=== PATIENT | female | born 2000 | race American Indian/Alaskan Native ===

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

== ENCOUNTER 2021-01-08 09:07 | Inpatient (IN) | payer MEDICAID ==
[2021-01-08] MEDS ORDERED: Lidocaine 1% 30 ML SDV INJECT PRN (11:46)
[2021-01-08] MEDS ORDERED: Ondansetron 4 MG/2 ML SDV IVPUSH PRN (11:46)
[2021-01-08] MEDS ORDERED: Lactated Ringers 1,000 ML IV ONE (11:46)
[2021-01-08] MEDS ORDERED: Misoprostol 400 MCG (4 X 100 MCG TAB) RECTAL PRN (11:46)
[2021-01-08] MEDS ORDERED: Carboprost Tromethamine 250 MCG/1 ML Amp IM PRN (11:46)
[2021-01-08] MEDS ORDERED: Butorphanol 2 MG/ML SDV IVPUSH PRN ×2 (11:46)
[2021-01-08] MEDS ORDERED: fentaNYL 100 MCG/2 ML SDV IVPUSH PRN (11:46)
[2021-01-08] MEDS ORDERED: Tranexamic Acid 1,000 MG in Sodium Chloride 0.9% 100 ML IV PRN (11:46)
[2021-01-08] MEDS ORDERED: Sodium Chloride 0.9% 10 ML Syringe FLUSH PRN (11:46)
[2021-01-08] MEDS ORDERED: Acetaminophen 325 MG Tab PO PRN (11:46)
[2021-01-08] MEDS ORDERED: Methylergonovine 0.2 MG/1 ML Amp IM PRN (11:46)
[2021-01-08] MEDS ORDERED: Nalbuphine 10 MG/1 ML Vial IV PRN (11:48)
[2021-01-08] MEDS ORDERED: Nalbuphine 10 MG/1 ML Vial IM PRN (11:48)
[2021-01-08] MEDS ORDERED: Oxytocin/Normal Saline 30 UNIT/500 ML BAG IV SCH (12:00)
[2021-01-08] MEDS: Lactated Ringers 1,000 ML IV SCH ×2 (12:56→16:44)
--- NOTE | 2021-01-08 16:19 | HP ---
HISTORY OF PRESENT ILLNESS: Dean is a 20 year old G1, P0, at 39 weeks 0 days gestational age based on LMP, confirmed by ultrasound, presenting for spontaneous rupture of membranes. She reports that around 8:30 this morning, she felt a large gush of clear fluid. She has been having intermittent contractions, she reports that last night they were approximately every hour. She reports that they are stronger now. She does report that she potentially has been leaking fluid for 2 to 3 weeks. When discussing vaginal discharge and urine, she feels certain that it has been amniotic fluid that has been leaking. She denies any recent fevers or chills, abdominal pain. She has not had any vaginal bleeding. movement is positive. Of note, her care started in [place], and she then transferred to [place], and then to [facility] in [place], [place], where she has been living most recently. She is actually in [facility] right now for a , as her sister committed suicide recently. OBSTETRIC HISTORY: G1: Current . GYNECOLOGICAL HISTORY: The patient denies any history of HSV. LABS (COMPLETED ON 06/19/2020): Blood group is A positive, antibody negative. RPR is nonreactive. Rubella IGG is positive, immune. Hepatitis B surface antigen was negative. Hepatitis C antibody was negative. HIV negative. Gonorrhea negative. Chlamydia positive on 06/19/2020, status post treatment with azithromycin on 07/17/2020. The patient reports test of cure was negative, we do not have these records yet. UDS was negative x2. TSH 0.62. Hemoglobin 12.9, hematocrit 37.9. Platelets 355. Glucose tolerance test on 11/30/2020, GTT 116, passed. GBS negative. Hemoglobin 10.5, hematocrit 32.4. Platelets 292. Ultrasound completed on 12/12/2020 showed mild polyhydramnios, maximal vertical pocket of 8.2. Estimated weight 55th percentile. Tdap given on 11/30/2020, influenza given on 11/30/2020. PAST MEDICAL HISTORY: Depression, not on medications, with history of suicide attempt. PAST SURGICAL HISTORY: None. ALLERGIES: No known drug allergies. SOCIAL HISTORY: Denies tobacco. Denies alcohol. Denies drugs. FAMILY HISTORY: Noncontributory. The patient denies family history of any bleeding/hypercoagulability disorder/ genetic condition/malignant hyperthermia. The patient's father is of diabetes and heart disease. Maternal aunt with breast cancer. First-degree cousin with Down syndrome. REVIEW OF SYSTEMS: General: The patient denies any recent fevers or chills, report weight gain has been stable throughout . Psychiatric: The patient reports sadness as she is in town for her sister's . She denies any suicidal or homicidal ideation. Dermatologic: The patient denies any skin rashes. Respiratory: Denies any increased work of breathing, shortness of breath. Cardiovascular: The patient denies any chest pain, palpitations. Gastrointestinal: The patient denies any abdominal pain, nausea, vomiting, diarrhea, constipation. Genitourinary: The patient denies any dysuria, increased frequency. PHYSICAL EXAMINATION: Admission Vitals: See vitals reported in [facility]. General Appearance: Alert, well appearing, in no apparent distress. Lungs: Clear to auscultation. No rales or rhonchi. Symmetric air entry without increased work of breathing. Heart: Regular rate and rhythm. No murmurs. Abdomen: Gravid, nontender to palpation, positive bowel sounds. By [place], baby is vertex. heart tone: Category 1. Baseline 120, moderate variability, positive accelerations, negative decelerations. [place]: Contractions every 3 minutes. Pelvic: Normal external genitalia, vulva, vagina. SVE: 2 cm dilated/50% effacement/-2 station, bag is spontaneously ruptured with clear fluid. Extremities: No redness or tenderness in the calf, no pitting edema. Skin: Normal color and turgor, no rash. ASSESSMENT AND PLAN: Dean is a 20-year-old G1, P0 at 39.0 weeks gestational age, admitted for spontaneous rupture of membrane, prelabor rupture of membranes. 1. Maternal wellbeing: Good. 2. wellbeing: heart tones category 1. 3. The patient is currently marialuisa every 3 minutes. We will start Pitocin for augmentation of labor. 4. Group B Streptococcus status is negative. Plan: No antibiotics in labor. 5. Pain management: The patient is unsure if she wants intrathecal at this time. She is going to see how things go. 6. Prelabor rupture of membranes: Admitting the patient for induction of labor. 7. Chlamydia infection in the first trimester: Status post azithromycin treatment and test of cure negative. 8. Anemia of : Hgb 10.5 on 11/20/20. [facility] /[id number] MTDD
[2021-01-08] MEDS ORDERED: fentaNYL 100 MCG/2 ML SDV ONE (16:32)
[2021-01-08] MEDS ORDERED: Sodium Bicarbonate 4.2% 2.5 MEQ/5 ML SDV ONE (16:33)
[2021-01-08] MEDS ORDERED: EPINEPHrine 1 MG/1 ML Amp ONE (16:33)
--- NOTE | 2021-01-08 16:58 | PCM.SN.2 ---
- Free Text/Narrative Note: Intrathecal. Sitting position, sterile prep and drape. 1% lidocaine w bicarb for skinwheal to L3 L4 interspace x 2. Introducer x 2, POS CSF, neg heme, neg parasthesia. 0.1 ml 1:1000 pf epi, 15 mcg pf sufenta, 35 mcg pf fentanyl. 0.04 ml pf NS and 6 mg of 0.75 % pf marcaine injected after CSF aspiration. Pt to L lateral position. Procedure time 1640 to 1710
[2021-01-08] MEDS ORDERED: Simethicone 80 MG Tab.Chew PO PRN (20:58)
[2021-01-08] MEDS ORDERED: Oxytocin 10 Units/1 ML SDV IM PRN (20:58)
[2021-01-08] MEDS ORDERED: Benzocaine/Menthol 20%-0.5% Spray 56 GM Canister TOP PRN (20:58)
[2021-01-08] MEDS ORDERED: hydrOXYzine HCl 25 MG Tab PO PRN (21:00)
[2021-01-08] MEDS: Ibuprofen 800 MG Tab PO PRN (22:57)
[2021-01-08] MEDS: Docusate Sodium 100 MG Cap PO PRN (22:58)
--- NOTE | 2021-01-09 02:58 | DEL ---
DATE: 01/08/2021 Dean Cuadra G1, now P1, GBS negative, delivery of a viable male weighing (pending), score of 7 and 9 at 1 and 5 minutes respectively. Delivery was vaginal to a sterile field under intrathecal anesthesia. Position was DELMI. There was no nuchal cord. was initially taken to the warmer and then promptly to Mom's chest. Complications of delivery: None. Placenta with 3-vessel cord delivered spontaneously, intact, and completely. Placenta appeared to have several calcifications. Perineum had superficial nonbleeding lacerations which did not require repair. Estimated blood loss approximately 500 mL. 30 units Pitocin was administered IV after placental delivery. Methergine 0.2 mg IM was also given due to persistent uterine bleeding. Uterine massage was performed and bleeding stopped. and mother recovering well in patient's room. ASSESSMENT AND PLAN: This is a G1, now P1 patient at 39 weeks gestational age status post vaginal delivery without complications. 1. Maternal well-being: Doing well. 2. well-being: Doing well, skin to skin. Mom planning on breast feeding. 3. Prelabor rupture of membranes: Status post vaginal delivery without complication. No fevers during labor. We will continue to monitor Mom and baby. 4. Chlamydia infection 1st trimester: Status post azithromycin treatment and test of cure negative. 5. Anemia of : Hemoglobin 10.5 on 11/20/2020. Hemoglobin on admission was 10.1 today. We will check CBC in the morning. The patient is asymptomatic. We will follow up clinically. 6. Hemorrhage: EBL 500mL. Pitocin and methergine given. Bleeding has stopped. Will follow Hgb and monitor for any further bleeding. [facility] /[id number] MTDD
--- NOTE | 2021-01-09 07:40 | PN ---
DATE: 01/08/2021 Labor Progress Note SUBJECTIVE: Labor. Pain is more intense, unable to breathe through contractions. Requesting intrathecal pain relief. No other somatic complaints. OBJECTIVE: Current Vital Signs: Please see vital signs reported in [facility]. General: Alert. No concerning distress. Abdomen: Gravid abdomen. Heart Tones: Category 1. Baseline 125, moderate variability, positive accelerations, negative decelerations. [place]: Contractions every 2 to 3 minutes. Pelvic: 5 to 6 cm dilated, 90% effaced, -1 station. Extremities: Nontender. No concerning edema. ASSESSMENT AND PLAN: Dean is a 20-year-old G1, P0, at 39.0 weeks' gestational age, admitted for prelabor rupture of membranes. 1. Maternal well-being: Good. 2. well-being: heart tone category 1. Correct heart tracing category 1. 3. Labor: Progressing. Pitocin running. 4. Group B Streptococcus status is negative. Plan: No antibiotics in labor. 5. Pain management: Anesthesia has been consulted for intrathecal. The patient has previously received Nubain. 6. Prelabor rupture of membranes: The patient is admitted and labor is currently being augmented. 7. Chlamydia infection in first trimester: Status post azithromycin treatment and test of cure negative. 8. Anemia of : Hemoglobin 10.5. The patient is asymptomatic. Plan: Continue to monitor clinically. [facility] /[id number]
--- NOTE | 2021-01-09 07:40 | PN ---
DATE: 01/08/2021 SUBJECTIVE: Labor. The patient has been very comfortable and sleeping most of the time since placement of intrathecal pain relief. No other somatic complaints. OBJECTIVE: Current Vital Signs: Please see vitals reported in [facility]. General: Alert. No concerning distress. Abdomen: Gravid, nontender. Heart Tracing: Category 1. Baseline 140 beats per minute, moderate variability, positive accelerations, early decelerations. [place]: Contractions every 2 to 3 minutes. Pelvic: Normal external genitalia, vulva, vagina. SVE: 10 cm/100% effacement/0 station. Bag has spontaneously ruptured. Extremities: Nontender. No concerning edema. ASSESSMENT AND PLAN: Dean is a 20-year-old G1, P0, at 39.0 weeks' gestational age, admitted for prelabor rupture of membranes. 1. Maternal well-being: Good. 2. well-being: heart tracing category 1. 3. Labor: Augmentation. Progressing. Pitocin currently at 6. 4. Group B Streptococcus status is negative. Plan: No antibiotics in labor. 5. Pain management: Intrathecal at 1700. Received 1 dose of Nubain prior. 6. Prelabor rupture of membranes: The patient admitted for augmentation of labor. 7. Chlamydia infection in first trimester: Status post azithromycin treatment, and test of cure is negative. 8. Anemia of : Hemoglobin 10.5 on 11/20/2020. Hemoglobin 10.1 on admission lab. The patient is asymptomatic. Plan: Continue to monitor clinically. [facility] /[id number]
[2021-01-09] MEDS: Ibuprofen 800 MG Tab PO PRN ×2 (08:42→18:05)
[2021-01-09] MEDS: Docusate Sodium 100 MG Cap PO PRN (08:42)
[2021-01-09] MEDS ORDERED: Prenatal Multivitamin with Calcium/Folic Acid/Iron Tab PO SCH (09:00)
--- NOTE | 2021-01-09 10:04 | PN ---
DATE: 01/09/2021 SUBJECTIVE: No complaints this morning. Denies chest pain, shortness of breath, nausea, vomiting, fevers, chills. Was out of bed once to ambulate and urinate last night without difficulty. Has not yet been out of bed this morning. Tolerating p.o. Lochia appropriate. Complains of some soreness, but otherwise pain is controlled. OBJECTIVE: Vital Signs: Please see charting in [facility]. General: Alert. No acute distress, appropriate affect. Respiratory: No increased work of breathing, clear to auscultation bilaterally. CV: Normal S1 and S2, no murmur. Abdomen: Soft, appropriately tender, fundus firm, -1 umbilicus. Extremities: Nontender. No concerning edema. LABORATORY DATA: WBC 12.4, hemoglobin 10.2, hematocrit 31.4, and platelets 227. Input 2500 mL, output 500 mL. ASSESSMENT AND PLAN: Dean is a G1, P1, status post spontaneous vaginal delivery without complications. PPD#1. 1. Maternal well-being: Doing well overall. 2. well-being: Doing well, was given formula overnight. Mom is undecided if she is going to try breast feeding again today. 3. Prelabor rupture of membranes: Status post vaginal delivery without complication. No fevers during labor, no fevers thus far in the period. We will continue to monitor mom and baby. 4. Chlamydia infection in the first trimester: Status post azithromycin treatment, and test of cure negative. 5. Anemia of : Hemoglobin 10.5 on 11/20/2020. Hemoglobin on admission was 10.1. Hemoglobin this morning was 10.2. The patient is asymptomatic. We will follow clinically. vitamins. 6. hemorrhage: Estimated blood loss 500 mL. Pitocin and Methergine given immediately . Bleeding resolved without any further intervention. We will continue to monitor mom for any further bleeding. [facility] /[id number] MTDD
[2021-01-09] MEDS ORDERED: Measles, Mumps & Rubella Vaccine 0.5 ML SDV SUBCUT ONE (17:39)
[2021-01-09] MEDS ORDERED: EPINEPHrine 1 MG/1 ML Amp ONE (22:29)
[2021-01-09] MEDS ORDERED: Sodium Bicarbonate 4.2% 2.5 MEQ/5 ML SDV ONE (22:29)
[2021-01-09] MEDS ORDERED: fentaNYL 100 MCG/2 ML SDV ITHECAL ONE (22:29)
[2021-01-09] MEDS ORDERED: Sodium Chloride 0.9% 20 ML SDV ONE (22:29)
--- NOTE | 2021-01-10 08:00 | DISCH ---
REASON FOR ADMISSION: Prelabor rupture of membranes. OBSTETRIC HISTORY: G1: Current . Status post spontaneous vaginal delivery without complication. DELIVERY: Sex: Male. Weight: 3805 g. Discharge Weight: 3815g Score: 7 and 9 at one and five minutes respectively. PROCEDURE: Intrapartum: Intrathecal anesthesia. PROBLEM LIST: 1. Spontaneous vaginal delivery at term (39.0 weeks gestational age). 2. Prelabor rupture of membranes. 3. GBS negative. 4. Rubella equivocal. 5. Chlamydia infection in the first trimester. 6. Anemia of . 7. hemorrhage. FINAL DIAGNOSES: 1. Spontaneous vaginal delivery, at term (39.0 weeks gestational age). 2. Prelabor rupture of membranes. 3. GBS negative. 4. Rubella equivocal. 5. Chlamydia infection in the first trimester. 6. Anemia of . 7. hemorrhage. CONSULTS AND REFERRALS: Anesthesiology ASSESSMENT AND PLAN: Dean is a 20-year-old status post spontaneous vaginal delivery at 39.0 weeks gestational age. 1. Prelabor rupture of membranes: Gush of fluid felt at 0830. Labor was augmented and the patient delivered at 2037. 2. GBS status negative. Plan: No antibiotics in labor. 3. Chlamydia infection in the first trimester: Status post azithromycin treatment, and test of cure is negative. 4. Anemia of : Hemoglobin 10.5 on 11/20/2020. Hemoglobin 10.1 on admission and 10.2 . 5. hemorrhage. Estimated blood loss of 500 mL. Status post 30 units oxytocin IV after delivery of anterior shoulder. Status post 0.2 mg of Methergine IM. Bleeding well controlled. No additional bleeding during hospital course. PRELIMINARY DISCHARGE MEDICATIONS: This list of medications is preliminary and tentative. Please see after visit summary for final and accurate medication list. 1. Tylenol 650 mg every 4 hours p.r.n. pain. 2. Ibuprofen 400 mg every 4 to 6 hours as needed for pain. 3. MiraLax 17 g q. day as needed for constipation. HOSPITAL COURSE: , 20-year-old female, 39 weeks and 0 days gestational age based on LMP, presented with prelabor rupture of membranes. She reported that at 8:30 on 01/08/2021 she felt a large gush of clear fluid. She had been having intermittent contractions on the day before. She reported that the contractions were stronger upon presentation. The patient reported that she was potentially leaking a small amount of fluid for 2 to 3 weeks. She had been afebrile and remained afebrile intrapartum and . Of note, the patient is currently living in [place], [place], and was in [facility] to attend her sister's . The patient's labor was augmented with Pitocin per protocol. She received intrathecal anesthesia for pain. She progressed to complete without complication. She pushed for approximately 45 minutes and had a spontaneous vaginal delivery of a viable male at 2035. Approximately 500 mL of EBL with poor uterine tone. She received 30 units of oxytocin IV and 0.2 mg of Methergine IM. This controlled the bleeding, and there were no other problems with bleeding . Recovery was uncomplicated. The patient was deemed stable for discharged home on 01/09/2021 after 24 hours with baby. DISCHARGE DISPOSITION: Home. FOLLOWUP APPOINTMENTS: Six weeks with [facility] [facility] [facility] in [place], [place]. [facility] /[id number] MTDD
== END 2021-01-09 22:30 | disposition home or self-care (01) | DRG 806 ==
LOC: DL.OBCHECK 09:07 → DL.OB 11:46 → OBSVTOIN 20:36
PROVIDERS: ADMIT Family Medicine; ATTEND Family Medicine
PROC: 10E0XZZ Delivery of Products of Conception, External Approach (ICD-10-PCS; 2021-01-08)
PROC: 3E0R3BZ Introduction of Anesthetic Agent into Spinal Canal, Percutaneous Approach (ICD-10-PCS; 2021-01-08)
PROC: 00HU33Z Insertion of Infusion Device into Spinal Canal, Percutaneous Approach (ICD-10-PCS; 2021-01-08)
PROC: 3E0234Z Introduction of Serum, Toxoid and Vaccine into Muscle, Percutaneous Approach (ICD-10-PCS; principal; 2021-01-09)
DX: O42.92 Full-term premature rupture of membranes, unspecified as to length of time between rupture and onset of labor (principal); O72.1 Other immediate postpartum hemorrhage; Z37.0 Single live birth; Z3A.39 39 weeks gestation of pregnancy; O99.02 Anemia complicating childbirth; D64.9 Anemia, unspecified; Z20.822 Contact with and (suspected) exposure to COVID-19; Z23 Encounter for immunization
CPT/HCPCS: 01967; 36415; 59409; 85027; 90471; 90707; A9270-GY; J0171; J2210; J2300; J2405; J2590; J3010; J7120; U0002

== ENCOUNTER 2023-06-30 08:36 | Emergency (ER) | payer MEDICAID ==
[2023-06-30] MEDS: Acetaminophen 500 MG Tab PO ONE (10:25)
[2023-06-30] MEDS: Ibuprofen 400 MG Tab PO ONE (10:25)
== END 2023-06-30 10:26 | disposition home or self-care (01) ==
LOC: DL.ED 08:36
DX: J02.9 Acute pharyngitis, unspecified (principal)
CPT/HCPCS: 87081; 87430; 99282; A9270

== ENCOUNTER 2024-02-28 08:41 | Emergency (ER) | payer MEDICAID ==
[2024-02-28] MEDS: Sodium Chloride 0.9% 1,000 ML IV ONE (09:30)
[2024-02-28 09:41] LABS: APPEARANCE,URINE CLEAR (CLEAR); BILIRUBIN,URINE NEGATIVE (NEGATIVE); COLOR,URINE YELLOW (YELLOW); GLUCOSE,URINE NEGATIVE (NEGATIVE); KETONES,URINE NEGATIVE (NEGATIVE); LEUKOCYTE ESTERASE,URINE NEGATIVE (NEGATIVE); NITRITE,URINE NEGATIVE (NEGATIVE); OCCULT BLOOD,URINE NEGATIVE (NEGATIVE); PROTEIN,URINE NEGATIVE (NEGATIVE)
[2024-02-28 09:57] LABS: BASOPHILS PERCENT AUTO 0.1 % (0.0-1.0); EOSINOPHILS PERCENT AUTO 1.2 % (1.0-3.0); HEMATOCRIT 42.5 % (37.0-47.0); HEMOGLOBIN 14.4 g/dL (12.0-16.0); LYMPHOCYTES PERCENT AUTO 45.4 % (20.5-50.1); MEAN CORPUSCULAR HEMOGLOBIN 29.8 pg (27.0-34.0); MEAN CORPUSCULAR HGB CONC 33.9 g/dL (33.0-35.0); MEAN CORPUSCULAR VOLUME 87.8 fL (80-100); MONOCYTES PERCENT AUTO 7.4 % (2-8); NEUTROPHILS PERCENT AUTO 45.9 % (42.2-75.2); PLATELET COUNT,PLT 333 10^3/uL (150-450); RED BLOOD CELL COUNT 4.84 10^6/uL (4.2-5.4); WHITE BLOOD CELL COUNT,WBC 6.8 10^3/uL (5.0-10.0)
[2024-02-28 10:09] LABS: A/G RATIO 0.9; ALANINE AMINOTRANSFERASE,ALT 161 U/L (14-59); ALBUMIN 3.9 g/dL (3.4-5.0); ALKALINE PHOSPHATASE 99 U/L (46-116); ANION GAP 16.1 mEq/L (7-13); ASPARTATE AMNIOTRANSFERASE,AST 84 U/L (15-37); BILIRUBIN TOTAL 0.3 mg/dL (0.2-1.0); BLOOD UREA NITROGEN,BUN 13 mg/dL (7-18); CALCIUM 8.2 mg/dL (8.5-10.1); CARBON DIOXIDE,CO2 24 mmol/L (21-32); CHLORIDE,CL 106 mmol/L (98-107); CREATININE 0.59 mg/dL (0.55-1.02); ETHANOL BLOOD MEDICAL 272 mg/dL (0); GLUCOSE RANDOM 98 mg/dL (70-99); POTASSIUM,K 4.1 mmol/L (3.5-5.1); PROTEIN TOTAL,TP 8.2 g/dL (6.4-8.2); SODIUM,NA 142 mmol/L (136-145)
[2024-02-28 10:13] LABS: ESTIMATED GFR 131 mL/min (>=60)
[2024-02-28] MEDS: Iopamidol 612 MG/ML 100 ML Bottle IVPUSH ONE (11:05)
[2024-02-28 11:50] LABS: AMPHETAMINES,URINE NEGATIVE (NEGATIVE); BARBITURATES,URINE NEGATIVE (NEGATIVE); BENZODIAZEPINE,URINE NEGATIVE (NEGATIVE); MDMA (ECSTASY), URINE NEGATIVE (NEGATIVE); METHADONE,URINE NEGATIVE (NEGATIVE); METHAMPHETAMINES,URINE NEGATIVE (NEGATIVE); OPIATES,URINE NEGATIVE (NEGATIVE); OXYCODONE,URINE NEGATIVE (NEGATIVE); PHENCYCLIDINE,URINE NEGATIVE (NEGATIVE); TCA,URINE NEGATIVE (NEGATIVE)
== END 2024-02-28 14:40 ==
LOC: DL.ED 08:41
DX: R10.2 Pelvic and perineal pain (principal); F32.A Depression, unspecified; F10.10 Alcohol abuse, uncomplicated; Y90.8 Blood alcohol level of 240 mg/100 ml or more
CPT/HCPCS: 36415; 74177; 80053; 80143; 80179; 80305; 80307; 81003; 81025; 84443; 85025; 96360; 96361; 99285; J7030; Q9967

== ENCOUNTER 2025-01-30 12:22 | Emergency (ER) | payer MEDICAID ==
[2025-01-30] MEDS ORDERED: Sodium Chloride 0.9% 10 ML Syringe FLUSH PRN (13:00)
[2025-01-30 13:14] LABS: BASOPHILS PERCENT AUTO 0.1 % (0.0-1.0); EOSINOPHILS PERCENT AUTO 1.4 % (1.0-3.0); HEMATOCRIT 41.2 % (37.0-47.0); HEMOGLOBIN 13.7 g/dL (12.0-16.0); LYMPHOCYTES PERCENT AUTO 26.7 % (20.5-50.1); MEAN CORPUSCULAR HEMOGLOBIN 30.7 pg (27.0-34.0); MEAN CORPUSCULAR HGB CONC 33.3 g/dL (33.0-35.0); MEAN CORPUSCULAR VOLUME 92.4 fL (80-100); MONOCYTES PERCENT AUTO 8.2 % (2-8); NEUTROPHILS PERCENT AUTO 63.6 % (42.2-75.2); PLATELET COUNT,PLT 272 10^3/uL (150-450); RED BLOOD CELL COUNT 4.46 10^6/uL (4.2-5.4); WHITE BLOOD CELL COUNT,WBC 8.3 10^3/uL (5.0-10.0)
[2025-01-30 13:35] LABS: ALANINE AMINOTRANSFERASE,ALT 59 U/L (14-59); ALBUMIN 3.9 g/dL (3.4-5.0); ALKALINE PHOSPHATASE 82 U/L (46-116); ANION GAP 14.9 mEq/L (7-13); ASPARTATE AMNIOTRANSFERASE,AST 24 U/L (15-37); BILIRUBIN TOTAL 0.8 mg/dL (0.2-1.0); BLOOD UREA NITROGEN,BUN 14 mg/dL (7-18); BUN/CREATININE RATIO 17.7 (No establ ref range); C-REACTIVE PROTEIN 4.26 ng/dL (<=0.50); CALCIUM 9.1 mg/dL (8.5-10.1); CARBON DIOXIDE,CO2 25 mmol/L (21-32); CHLORIDE,CL 108 mmol/L (98-107); CREATININE 0.79 mg/dL (0.55-1.02); GLUCOSE RANDOM 93 mg/dL (70-99); MAGNESIUM 2.1 mg/dL (1.8-2.4); POTASSIUM,K 3.9 mmol/L (3.5-5.1); SODIUM,NA 144 mmol/L (136-145)
[2025-01-30 13:43] LABS: ESTIMATED GFR 108 mL/min (>=60)
[2025-01-30] MEDS: Iopamidol 612 MG/ML 100 ML Bottle IVPUSH ONE (13:48)
[2025-01-30] MEDS: Ketorolac 30 MG/ML SDV IVPUSH ONE (14:18)
[2025-01-30] MEDS: Acetaminophen/HYDROcodone 325-5 MG Tab PO ONE (15:01)
[2025-01-30] MEDS: Sulfamethoxazole/Trimethoprim 800-160 MG Tab PO ONE (15:36)
== END 2025-01-30 15:50 | disposition home or self-care (01) ==
LOC: DL.ED 12:22
DX: L03.116 Cellulitis of left lower limb (principal); S81.002A Unspecified open wound, left knee, initial encounter; W45.8XXA Other foreign body or object entering through skin, initial encounter
CPT/HCPCS: 36415; 73701-LT; 80053; 83605; 83735; 85025; 86140; 96374; 99283; 99283-25; A9270-GY; J1885; Q9967

== ENCOUNTER 2025-02-11 13:50 | Emergency (ER) | payer MEDICAID ==
[2025-02-11] MEDS: Acetaminophen 500 MG Tab PO ONE (14:41)
[2025-02-11] MEDS: Ibuprofen 400 MG Tab PO ONE (14:41)
== END 2025-02-11 14:45 | disposition home or self-care (01) ==
LOC: DL.ED 13:50
DX: S09.90XA Unspecified injury of head, initial encounter (principal); W22.8XXA Striking against or struck by other objects, initial encounter; Y93.89 Activity, other specified
CPT/HCPCS: 99282; 99283; A9270

== ENCOUNTER 2025-02-14 11:30 | Emergency (ER) | payer SELFPAY | END 2025-02-14 12:48 | disposition home or self-care (01) | LOC: DL.ED 11:30 | DX: S06.0X0A Concussion without loss of consciousness, initial encounter (principal); X58.XXXA Exposure to other specified factors, initial encounter | CPT/HCPCS: 70450; 99284 ==

== ENCOUNTER 2025-02-19 21:09 | Emergency (ER) | payer SELFPAY ==
[2025-02-19] MEDS ORDERED: Sodium Chloride 0.9% 10 ML Syringe FLUSH PRN (21:16)
[2025-02-19 21:44] LABS: BASOPHILS PERCENT AUTO 0.1 % (0.0-1.0); EOSINOPHILS PERCENT AUTO 1.4 % (1.0-3.0); HEMATOCRIT 40.9 % (37.0-47.0); HEMOGLOBIN 13.7 g/dL (12.0-16.0); LYMPHOCYTES PERCENT AUTO 37.1 % (20.5-50.1); MEAN CORPUSCULAR HEMOGLOBIN 30.4 pg (27.0-34.0); MEAN CORPUSCULAR HGB CONC 33.5 g/dL (33.0-35.0); MEAN CORPUSCULAR VOLUME 90.7 fL (80-100); MONOCYTES PERCENT AUTO 8.3 % (2-8); NEUTROPHILS PERCENT AUTO 53.1 % (42.2-75.2); PLATELET COUNT,PLT 307 10^3/uL (150-450); RED BLOOD CELL COUNT 4.51 10^6/uL (4.2-5.4); WHITE BLOOD CELL COUNT,WBC 7.8 10^3/uL (5.0-10.0)
[2025-02-19 21:47] LABS: O2 DELIVERY DEVICE ROOM AIR; PH,VENOUS 7.34 (7.31-7.41)
[2025-02-19 21:48] LABS: BICARBONATE,VENOUS 25 mmol/l (19-25); O2 SATURATION VENOUS 63.8 % (60-80); PCO2 VENOUS 47 mmHg (41-51); PO2 VENOUS 41 mmHg (35-42)
[2025-02-19 22:06] LABS: A/G RATIO 1.2; ALANINE AMINOTRANSFERASE,ALT 71 U/L (14-59); ALBUMIN 4.4 g/dL (3.4-5.0); ALKALINE PHOSPHATASE 84 U/L (46-116); ANION GAP 18.5 mEq/L (7-13); ASPARTATE AMNIOTRANSFERASE,AST 53 U/L (15-37); BILIRUBIN TOTAL 0.8 mg/dL (0.2-1.0); BLOOD UREA NITROGEN,BUN 17 mg/dL (7-18); BUN/CREATININE RATIO 21.8 (No establ ref range); CALCIUM 9.2 mg/dL (8.5-10.1); CARBON DIOXIDE,CO2 25 mmol/L (21-32); CHLORIDE,CL 104 mmol/L (98-107); CREATININE 0.78 mg/dL (0.55-1.02); GLUCOSE RANDOM 100 mg/dL (70-99); MAGNESIUM 2.1 mg/dL (1.8-2.4); POTASSIUM,K 3.5 mmol/L (3.5-5.1); PROTEIN TOTAL,TP 8.1 g/dL (6.4-8.2); SODIUM,NA 144 mmol/L (136-145)
[2025-02-19 22:10] LABS: ACETAMINOPHEN 0 ug/mL (10-30 (Therapeutic)); ESTIMATED GFR 109 mL/min (>=60); ETHANOL BLOOD MEDICAL < 3 mg/dL (0)
[2025-02-19 22:12] LABS: INR 0.9 (0.9-1.2); PROTHROMBIN TIME 9.8 SEC (9.0-12.0); PTT,PARTIAL THROMBOPLSTIN TIME 23.1 SEC (22.0-34.0)
[2025-02-19 23:33] LABS: AMPHETAMINES,URINE NEGATIVE (NEGATIVE); BARBITURATES,URINE NEGATIVE (NEGATIVE); BENZODIAZEPINE,URINE NEGATIVE (NEGATIVE); MDMA (ECSTASY), URINE NEGATIVE (NEGATIVE); METHADONE,URINE NEGATIVE (NEGATIVE); METHAMPHETAMINES,URINE NEGATIVE (NEGATIVE); OPIATES,URINE NEGATIVE (NEGATIVE); OXYCODONE,URINE NEGATIVE (NEGATIVE); PHENCYCLIDINE,URINE NEGATIVE (NEGATIVE); TCA,URINE NEGATIVE (NEGATIVE)
[2025-02-20 02:00] LABS: A/G RATIO 1.2; ALANINE AMINOTRANSFERASE,ALT 68 U/L (14-59); ALBUMIN 4.2 g/dL (3.4-5.0); ALKALINE PHOSPHATASE 80 U/L (46-116); ASPARTATE AMNIOTRANSFERASE,AST 41 U/L (15-37); BILIRUBIN TOTAL 0.8 mg/dL (0.2-1.0); BLOOD UREA NITROGEN,BUN 14 mg/dL (7-18); BUN/CREATININE RATIO 17.3 (No establ ref range); CALCIUM 9.2 mg/dL (8.5-10.1); CARBON DIOXIDE,CO2 25 mmol/L (21-32); CHLORIDE,CL 106 mmol/L (98-107); CREATININE 0.81 mg/dL (0.55-1.02); GLUCOSE RANDOM 107 mg/dL (70-99); PROTEIN TOTAL,TP 7.8 g/dL (6.4-8.2); SODIUM,NA 145 mmol/L (136-145)
[2025-02-20 02:05] LABS: ACETAMINOPHEN 0 ug/mL (10-30 (Therapeutic)); ESTIMATED GFR 105 mL/min (>=60)
[2025-02-20] MEDS: Zolpidem 5 MG Tab PO ONE (02:46)
== END 2025-02-20 10:09 | disposition home or self-care (01) ==
LOC: DL.ED 21:09
DX: T39.312A Poisoning by propionic acid derivatives, intentional self-harm, initial encounter (principal)
CPT/HCPCS: 36415; 80053; 80143; 80179; 80305-QW; 80307; 82803; 83605; 83735; 85025; 85610; 85730; 93005; 93010; 99284; 99285; A9270-GY

== ENCOUNTER 2025-06-01 12:11 | Emergency (ER) | payer SELFPAY ==
[2025-06-01] MEDS ORDERED: Sodium Chloride 0.9% 10 ML Syringe FLUSH PRN (12:23)
[2025-06-01 12:48] LABS: BASOPHILS PERCENT AUTO 0.3 % (0.0-1.0); EOSINOPHILS PERCENT AUTO 1.8 % (1.0-3.0); LYMPHOCYTES PERCENT AUTO 36.1 % (20.5-50.1); MONOCYTES PERCENT AUTO 7.9 % (2-8); NEUTROPHILS PERCENT AUTO 53.9 % (42.2-75.2); PLATELET COUNT,PLT 331 10^3/uL (150-450); RED BLOOD CELL COUNT 4.46 10^6/uL (4.2-5.4); WHITE BLOOD CELL COUNT,WBC 7.3 10^3/uL (5.0-10.0)
[2025-06-01 13:05] LABS: A/G RATIO 1.1; ALANINE AMINOTRANSFERASE,ALT 28 U/L (14-59); ASPARTATE AMNIOTRANSFERASE,AST 15 U/L (15-37); BILIRUBIN TOTAL 0.6 mg/dL (0.2-1.0); BLOOD UREA NITROGEN,BUN 10 mg/dL (7-18); CARBON DIOXIDE,CO2 28 mmol/L (21-32); CHLORIDE,CL 104 mmol/L (98-107); CREATININE 0.76 mg/dL (0.55-1.02); EST CRCL DRUG DOSING (CG) 99.41 mL/min; GLUCOSE RANDOM 91 mg/dL (70-99); POTASSIUM,K 4.0 mmol/L (3.5-5.1); PROTEIN TOTAL,TP 7.6 g/dL (6.4-8.2); SODIUM,NA 142 mmol/L (136-145)
[2025-06-01 13:06] LABS: ESTIMATED GFR 113 mL/min (>=60)
[2025-06-01 13:10] LABS: HCG QUALITATIVE,SERUM NEGATIVE (NEGATIVE)
[2025-06-01] MEDS: Iopamidol 612 MG/ML 100 ML Bottle IVPUSH ONE (13:11)
[2025-06-01] MEDS: Ketorolac 30 MG/ML SDV IVPUSH ONE (14:29)
== END 2025-06-01 14:43 | disposition home or self-care (01) ==
LOC: DL.ED 12:11
DX: N92.6 Irregular menstruation, unspecified (principal); E86.0 Dehydration
CPT/HCPCS: 36415; 74178; 80053; 83735; 84703; 85025; 96361; 96374; 99284; J1885; J7030; Q9967

== ENCOUNTER 2025-09-12 14:17 | Emergency (ER) | payer MEDICAID ==
[2025-09-12 14:44] LABS: BASOPHILS PERCENT AUTO 0.2 % (0.0-1.0); EOSINOPHILS PERCENT AUTO 2.6 % (1.0-3.0); LYMPHOCYTES PERCENT AUTO 47.4 % (20.5-50.1); MONOCYTES PERCENT AUTO 8.4 % (2-8); NEUTROPHILS PERCENT AUTO 41.4 % (42.2-75.2); PLATELET COUNT,PLT 292 10^3/uL (150-450); RED BLOOD CELL COUNT 4.20 10^6/uL (4.2-5.4); WHITE BLOOD CELL COUNT,WBC 6.4 10^3/uL (5.0-10.0)
[2025-09-12 15:16] LABS: INR 0.9 (0.9-1.2); PTT,PARTIAL THROMBOPLSTIN TIME 26.3 SEC (22.0-34.0)
[2025-09-12 15:17] LABS: A/G RATIO 1.3; ALANINE AMINOTRANSFERASE,ALT 28.0 U/L (14-59); ASPARTATE AMNIOTRANSFERASE,AST 14.0 U/L (15-37); BILIRUBIN TOTAL 0.4 mg/dL (0.2-1.0); BLOOD UREA NITROGEN,BUN 14.0 mg/dL (7-18); CARBON DIOXIDE,CO2 28.0 mmol/L (21-32); CHLORIDE,CL 107.0 mmol/L (98-107); CREATININE 0.56 mg/dL (0.55-1.02); EST CRCL DRUG DOSING (CG) 134.92 mL/min; ESTIMATED GFR 131.0 mL/min (>=60); GLUCOSE RANDOM 99.0 mg/dL (70-99); POTASSIUM,K 3.6 mmol/L (3.5-5.1); PROTEIN TOTAL,TP 6.9 g/dL (6.4-8.2); SODIUM,NA 143.0 mmol/L (136-145)
[2025-09-12] MEDS ORDERED: Iopamidol 612 MG/ML 100 ML Bottle IVPUSH ONE (15:18)
[2025-09-12] MEDS: Ketorolac 30 MG/ML SDV IM ONE (15:31)
== END 2025-09-12 15:55 | disposition home or self-care (01) ==
LOC: DL.ED 14:17
DX: R07.89 Other chest pain (principal)
CPT/HCPCS: 36415; 71045; 80053; 84484; 85025; 85610; 85730; 93005; 96374; 99285-25; J1885